=== PATIENT | female | born 1980 | race Caucasian/White ===

== ENCOUNTER → 2017-06-30 | Emergency (ER) | payer OTHER ==
[~2017-06-30] VITALS: Ht 160 cm; Wt 79.4 kg
[~2017-06-30] MED LIST: KETO10TA2 PO; TRAM1TAB98 PO
== END | disposition home or self-care (01) ==
LOC: ER 04:45
DX: G43.109 Migraine with aura, not intractable, without status migrainosus (principal)

== ENCOUNTER 2020-05-29 12:29 | Emergency (ER) | payer OTHER ==
[~2020-05-29] VITALS: Ht 160 cm; Wt 79.4 kg
[2020-05-29] MEDS ORDERED: TAMS0.4C PO (17:54)
[2020-05-29] MEDS ORDERED: ACETAMINOPHEN650 M2 PO (17:54)
[2020-05-29] MEDS ORDERED: NAPROXEN375 MG PO (17:54)
[2020-05-29] MEDS ORDERED: ZOFRAN8 MG PO (17:54)
== END 2020-05-29 18:13 | disposition home or self-care (01) ==
LOC: ER 12:29
DX: R10.31 Right lower quadrant pain (principal); N20.0 Calculus of kidney